=== PATIENT | male | born 1985 | race Caucasian/White ===

== ENCOUNTER 2020-10-30 16:53 | Outpatient (REF) | payer BC, SELFPAY | END 2020-10-30 16:54 | disposition home or self-care (01) | LOC: HO.LAB 16:53 | PROVIDERS: Visit Provider Internal Medicine | DX: Z20.822 Contact with and (suspected) exposure to COVID-19 (principal) | CPT/HCPCS: 36415; C9803; U0003 ==

== ENCOUNTER → 2022-11-07 14:57 | Outpatient (BNVA) | payer BC, SELFPAY | PROVIDERS: PCP Internal Medicine; Visit Provider Internal Medicine Endocrinology, Diabetes & Metabolism | DX: E11.65 Type 2 diabetes mellitus with hyperglycemia (principal) | CPT/HCPCS: 82947; 83036 ==

== ENCOUNTER → 2023-02-05 15:25 | Outpatient (BNVA) | payer BC, SELFPAY | PROVIDERS: PCP Internal Medicine; Visit Provider Internal Medicine Endocrinology, Diabetes & Metabolism | DX: E11.65 Type 2 diabetes mellitus with hyperglycemia (principal) | CPT/HCPCS: 82947 ==

== ENCOUNTER → 2023-02-25 12:58 | Outpatient (BNVA) | payer BC, SELFPAY | PROVIDERS: PCP Internal Medicine; Visit Provider Dietitian, Registered | DX: E11.65 Type 2 diabetes mellitus with hyperglycemia (principal); Z71.3 Dietary counseling and surveillance | CPT/HCPCS: 97802 ==

== ENCOUNTER 2023-03-05 07:30 | Outpatient (REF) | payer BC, SELFPAY ==
[2023-03-05 09:51] LABS: Alanine Aminotransferase 21 U/L (0-40); Albumin Level 4.1 g/dL (3.5-5.0); Alkaline Phosphatase 70 U/L (39-117); Anion Gap 10 (12-20); Aspartate Amino Transferase 10 U/L (5-37); Bilirubin Total 0.4 mg/dL (0.0-1.0); Blood Urea Nitrogen 17 mg/dL (9-16); Calcium 9.7 mg/dL (8.4-10.2); Carbon Dioxide 31 mmol/L (22-29); Chloride 103 mmol/L (96-108); Estimated Glomerular Filt Rate > 60; Glucose Random 268 mg/dL (60-115); Potassium 4.6 mmol/L (3.3-5.1); Sodium 139 mmol/L (135-145); Total Protein 6.9 g/dL (6.5-8.0)
== END 2023-03-05 07:31 | disposition home or self-care (01) ==
LOC: HO.LAB 07:30
PROVIDERS: PCP Internal Medicine; Visit Provider Internal Medicine
DX: E11.65 Type 2 diabetes mellitus with hyperglycemia (principal)
CPT/HCPCS: 36415; 80053

== ENCOUNTER → 2023-03-21 07:54 | Outpatient (BNVA) | payer BC, SELFPAY | PROVIDERS: PCP Internal Medicine; Visit Provider Internal Medicine Endocrinology, Diabetes & Metabolism | DX: E11.65 Type 2 diabetes mellitus with hyperglycemia (principal) | CPT/HCPCS: 82947; 83036 ==

== ENCOUNTER 2023-05-12 14:29 | Outpatient (AMB) | payer BC, SELFPAY ==
--- NOTE | 2023-05-12 14:33 | A.OFFVIS_ITS ---
Intake VS Expanded 05/12/23 14:35 Height 5 ft 11 in Weight 281 lb 1.43 oz BMI 39.2 Intake Visit Reasons: T2DM Allergies No Known Allergies [No Known Allergies*] Allergy (Verified 03/21/23 08:03) HPI Nutrition Presentation Details Pt presents for MNT f/u for T2DM. Pt reports having increased appetite. Needs review on relationship of fat/carb and BG level Most Recent Diabetes Results: Creatinine 0.84 mg/dL (0.5-1.4) 03/05/23 Blood Urea Nitrogen 17 mg/dL (9-16) H 03/05/23 Sodium 139 mmol/L (135-145) 03/05/23 Potassium 4.6 mmol/L (3.3-5.1) 03/05/23 Chloride 103 mmol/L (96-108) 03/05/23 Carbon Dioxide 31 mmol/L (22-29) H 03/05/23 Calcium 9.7 mg/dL (8.4-10.2) 03/05/23 AST 10 U/L (5-37) 03/05/23 ALT 21 U/L (0-40) 03/05/23 Total Protein 6.9 g/dL (6.5-8.0) 03/05/23 Albumin 4.1 g/dL (3.5-5.0) 03/05/23 [facility] Medical History (Updated 11/07/22 @ 15:51 by Binu García MD) Uncontrolled type 2 diabetes mellitus with hyperglycemia Surgical History No history of previous surgery Family History Father Diabetic gangrene Mother Diabetes Brother Diabetes Sister Diabetes Social History Household Members: Family Household Members Other:: mom, and dad Patient Tobacco Use Status: Never used Tobacco Assessment & Plan Assessment & Plan (1) Uncontrolled type 2 diabetes mellitus with hyperglycemia: Code(s): E11.65 - Type 2 diabetes mellitus with hyperglycemia Plan Educate Pt on reduction, diabetic meal plan ? Used wt : 129 kg Est kcal as per MSJ: 3225 (40% carb, 30% fat/prot) Est fluid needs: 3225 ml/d (25 ml/kg bw) Rec fiber: increase to 8-10 g per day and gradually increase to 35 g as tolerated Rec Na: < 2000 mg /d Educate patient on: (R= Reviewed, V = verbalizes understanding N/R= Needs review N/A= not applicable) * Food sources of carbohydrates and serving adequate serving sizes : R * Difference between complex carbohydrates and simple carbohydrates, role of fiber: R * Differences between fats (MUFA/PUFA/saturated fats, trans fats) and food sources of various fats: R (basic info) * Food sources of sodium and salt and healthy modifications for heart health and kidney health: N/R * Vitamins and minerals: R * How to interpret food labels: N/R * Healthy Plate method concept: R * Physical activity: benefits and precaution: R Patient Instructions: - include omega 3 sources : tuna at least twice/week - Include fiber rich foods in your meal at lunch (beans/corn/lettuce/spinach ) and modify the portion of rice by reducing portion to 1/2 cup less -Continue working on reducing sugars (beverages/pastries/cookies and similar foods) Coding Level of Care Code Nutr Indiv Subseq (29352) Diagnoses Uncontrolled type 2 diabetes mellitus with hyperglycemia E11.65 Time Spent (min) 30
[2023-05-12 14:35] VITALS: BMI 39.2
== END 2023-05-12 15:11 | disposition home or self-care (01) ==
PROVIDERS: PCP Internal Medicine; Visit Provider Dietitian, Registered
DX: E11.65 Type 2 diabetes mellitus with hyperglycemia (principal)

== ENCOUNTER → 2023-05-12 14:29 | Outpatient (BNVA) | payer BC, SELFPAY | PROVIDERS: Visit Provider Dietitian, Registered | DX: E11.65 Type 2 diabetes mellitus with hyperglycemia (principal); Z71.3 Dietary counseling and surveillance | CPT/HCPCS: 97803 ==

== ENCOUNTER 2023-05-19 14:50 | Outpatient (AMB) | payer BC, SELFPAY ==
--- NOTE | 2023-05-19 15:52 | A.OFFVIS_ITS ---
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 Accompanied by: Self / Same As Patient Allergies No Known Allergies [No Known Allergies*] Allergy (Verified 03/21/23 08:03) [facility] Comprehensive Diabetes Asmnt General Diabetes type type 2 Age of onset 37 Most Recent Diabetes Results: Creatinine 0.84 mg/dL (0.5-1.4) 03/05/23 Blood Urea Nitrogen 17 mg/dL (9-16) H 03/05/23 Sodium 139 mmol/L (135-145) 03/05/23 Potassium 4.6 mmol/L (3.3-5.1) 03/05/23 Chloride 103 mmol/L (96-108) 03/05/23 Carbon Dioxide 31 mmol/L (22-29) H 03/05/23 Calcium 9.7 mg/dL (8.4-10.2) 03/05/23 AST 10 U/L (5-37) 03/05/23 ALT 21 U/L (0-40) 03/05/23 Total Protein 6.9 g/dL (6.5-8.0) 03/05/23 Albumin 4.1 g/dL (3.5-5.0) 03/05/23 COUNTS INCLUDE 234 BEDS AT THE [facility] Medical History (Updated 11/07/22 @ 15:51 by Binu García MD) Uncontrolled type 2 diabetes mellitus with hyperglycemia Surgical History No history of previous surgery Family History Father Diabetic gangrene Mother Diabetes Brother Diabetes Sister Diabetes Social History Household Members: Family Household Members Other:: mom, and dad Patient Tobacco Use Status: Never used Tobacco Assessment & Plan Assessment & Plan (1) Uncontrolled type 2 diabetes mellitus with hyperglycemia: Code(s): E11.65 - Type 2 diabetes mellitus with hyperglycemia Plan: Learning objectives: The patient was provided with verbal and written education on the following t opics as outlined below. The patient met all learning objectives and was able to verbalize understanding and provide teach back of education topics discussed . The patient was provided with the opportunity to ask questions and all questions were answered. Patient Assessment Assess patient education level/literacy/barriers Patient questions/concerns, patient diagnosed with diabetes winter 2021. Last A1c on 03/21/2023 10.4% Patient was on Mounjaro, but unable to afford co-pay. He is currently taking his mother's Trulicity 1.5 mg weekly Glipizide ER 10 mg daily Pioglitazone and metformin b.i.d. He is not taking Toujeo 30 units daily due to fear of hypoglycemia Discussed with patient action of medications, patient does have several episodes hypoglycemia in the last 90 days. Then average glucose of 119, patient asked if he could stop 1 those medication. Discussed holding glipizide 10 mg. Will send message to Dr. García What is Diabetes? Pathophysiology How the body produces and uses insulin Identify type of DM Risk factors Signs of Diabetes Brief overview of Diabetes Management Monitoring blood sugar Following a meal plan Regular exercise Maintaining a healthy weight Taking medication as needed Members of the care team (PCP, RN, MA, RD, CDE, parts technician) Blood glucose monitoring When/how often to test Target blood sugar ranges Patient using freestyle Umm 3 Patient above target 3% Patient below target 0% Patient at target 97% Average glucose for the past 7 days 119 mg/dL Patient has 1 episode of hypoglycemia in the past 7 days Patient concerned with glucose dropping overnight Introduction to Nutrition Importance of healthy diet in managing DM Diet is personalized to individual preference Review patient?s regular diet/food preferences Who prepares meals/does food shopping/ Dining out?/ Barriers? How diet effects glucose Eating 3 balanced meals a day with small, healthy snacks between meals Review food groups Carbohydrates: What is a carbohydrate/Which food/food groups are considered carbohydrates Effect of carbohydrates on blood glucose Portion sizes Reading food labels Basic carb counting (if applicable per nursing assessment) Plate method Meal planning Recommendations: Follow plate method, consistent carbs and read nutritional labels. Smart Goal: Keep meals within 45-60 g of carb Educational Materials: The patient was provided with the following written educational materials: Planning Healthy Meals Handout Patient Response to instructions: Comprehension of Instructions: Fair Readiness to make changes: Contemplation How confident they feel about making changes: Positive Patient Instructions: Include regular daily activity. ADA recommends 30 minutes of exercise 5 days a week. Weight loss talk to PCP or Children'S Lunchroom Supervisor before starting new plan. Test blood sugar as directed; Fasting and 2hpp largest meal. Watch trends in results. Utilize results and to assess how food, physical activity and medications affect blood sugar results. Bring glucometer or CGM to next visit. Be knowledgeable about diabetes medication, its action, side effects, efficacy, toxicity, prescribed dosage, appropriate timing and frequency of administration, effect of missed and delayed doses and instructions for storage, travel and safety. Problem solving techniques to monitor hypo/hyperglycemia episodes and treatments. Reduce risk reduction behaviors, smoking cessation, regular eye, foot and dental examinations. Follow-up with chemical educator in 2 months Coding Level of Care Code Est Pt Level 1 (20539) Diagnoses Uncontrolled type 2 diabetes mellitus with hyperglycemia E11.65
== END 2023-05-19 15:57 | disposition home or self-care (01) ==
PROVIDERS: PCP Internal Medicine; Visit Provider Registered Nurse Diabetes Educator
DX: E11.65 Type 2 diabetes mellitus with hyperglycemia (principal)
CPT/HCPCS: 99211

== ENCOUNTER → 2023-05-19 14:50 | Outpatient (BNVA) | payer BC, SELFPAY | PROVIDERS: Visit Provider Registered Nurse Diabetes Educator ==

== ENCOUNTER 2023-06-19 15:24 | Outpatient (AMB) | payer BC, SELFPAY ==
[2023-06-19 15:26] VITALS: BP 132/68; PULSE 83; BMI 38.6
--- NOTE | 2023-06-19 15:26 | A.OFFVIS_ITS ---
Intake Vital Signs 06/19/23 15:26 Height 5 ft 11 in Weight 276 lb 7.355 oz BMI 38.6 BP 132/68 Blood Pressure Location Lt brachial Position Sitting Pulse 83 Pulse Source Pulse Oximeter Intake Visit Reasons: F/Up Type 2 DM Intake Note: Patient receives DME supplies through: Last Diabetic Eye exam: Haven't had one in years Last Podiatry Visit:None Random Glucose: 95 mg/dl HgA1C: 7.0% Internet Security Specialist Required: No Accompanied by: Self / Same As Patient Allergies No Known Allergies [No Known Allergies*] Allergy (Verified 06/19/23 15:30) Medication List - Last Reconciled 06/19/23 by Binu García MD albuterol sulfate 90 mcg/actuation inhalation blood sugar diagnostic (FreeStyle Lite Strips) As directed twice a day blood-glucose meter (FreeStyle Lite Meter kit) As directed blood-glucose sensor (FreeStyle Umm 3 Sensor device) As directed- change every 14 days dulaglutide (Trulicity) 1.5 mg subcut QWEEK insulin glargine U-300 conc (Toujeo Max U-300 SoloStar) 30 units (0.1 mL) subcut BEDTIME lancets (FreeStyle Lancets) As directed metformin 850 mg PO BID pen needle, diabetic (BD Rhina 2nd Gen Pen Needle) As directed injects once a day pioglitazone-metformin 15-850 mg 1 tab PO BID HPI HPI Comments History of Present Illness Details 37 YO M who is seen in consultation for T2DM at the request of PCP. Initially diagnosed with T2DM in 3 yrs . Never saw endo before Was initially started on treatment with metformin and glipizide . Current regimen Toujeo 30 units not taking Actos-Metformin 15-850 Mg BID . Trulicity 1.5 mg Qwkly Umm download shows he is using the sensor 50% of the time. Average glucose is 162 with G mi a of 7.2% and variability 22.5%. 73% range with to 27% hyperglycemia and no hypoglycemia No Reports low sugars . Family history of T2DM in mother and father . , last eye exam , needs to make appt . Has appt in 06/2023 Denies neuropathy,Does not sees podiatry. Has appt Denies nephropathy, Not on JUNA/ARB. Not Has HLD, Not on statin. ]. Denies CAD. Not Had diabetes education. [facility] Medical History (Updated 11/07/22 @ 15:51 by Binu García MD) Uncontrolled type 2 diabetes mellitus with hyperglycemia Surgical History No history of previous surgery Family History Father Diabetic gangrene Mother Diabetes Brother Diabetes Sister Diabetes Social History Household Members: Family Household Members Other:: mom, and dad Patient Tobacco Use Status: Never used Tobacco Physical Exam Vital Signs: Last Vital Signs Pulse 83 06/19/23 15:26 BP 132/68 06/19/23 15:26 BMI result Body Mass Index 38.6 Absence of Cushingoid features. Absence of acromegalic features. Neck exam reveals nl size thyroid about 15 gms. No thyroid nodules palpable. No carotid bruits present. Lungs CTA. Heart S1 S2, Reg R/R. No M/R/ G. Skin exam reveals absence of vitiligo or acanthosis nigricans. Abdominal exam reveals Soft NT/ND with NA BS. No organomegaly present. Neck Other: . Extrem Other: Visual exam of foot performed. No ulcerations or open lesions. No onchomycosis, no callouses.Pulses 2 + distally Sensation intact to monofilament exam. Vibratory sensation sensed is intact with 128 Hz tuning fork Results AMB Hemoglobin A1c AMB Hemoglobin A1c 7.0 % Last Edit by Karo Bhakta on 06/19/23 16:08 Results Reviewed Results Reviewed: 06/19/23 15:37 Glucose, Whole Blood Routine Laboratory Last Values Glucose (Clinic) 95 mg/dL (60-115) 06/19/23 15:37 Hgb A1c (Clinic) 7.0 % (4.0-6.0) H 06/19/23 15:57 Assessment & Plan Assessment & Plan (1) Uncontrolled type 2 diabetes mellitus with hyperglycemia: Code(s): E11.65 - Type 2 diabetes mellitus with hyperglycemia Plan: This is a 37-year-old male with a history of type 2 diabetes being treated with metformin, Actos and trulicity with excellent improved glycemic control and no known macrovascular or macrovascular complications. Plan is to continue the current management. At this point, patient returned to the care of his primary care provider. If his HbA1c rises, either Trulicity can be raised to 3 mg q.week or an SGLT 2 inhibitor like Jardiance can be initiated or the patient returned back to endocrine Orders: Orders AMB Hemoglobin A1c 06/19/23 E11.65 - Type 2 diabetes mellitus with hyperglycemia Coding Level of Care Code Est Pt Level 4 (88077) Diagnoses Uncontrolled type 2 diabetes mellitus with hyperglycemia E11.65
[2023-06-19 15:41] LABS: Glucose, Whole Blood 95 mg/dL (60-115)
== END 2023-06-19 16:01 | disposition home or self-care (01) ==
PROVIDERS: PCP Internal Medicine; Visit Provider Internal Medicine Endocrinology, Diabetes & Metabolism
DX: E11.65 Type 2 diabetes mellitus with hyperglycemia (principal)
CPT/HCPCS: 99214

== ENCOUNTER → 2023-06-19 15:24 | Outpatient (BNVA) | payer BC, SELFPAY | PROVIDERS: Visit Provider Internal Medicine Endocrinology, Diabetes & Metabolism | DX: E11.65 Type 2 diabetes mellitus with hyperglycemia (principal); Z79.4 Long term (current) use of insulin | CPT/HCPCS: 82947; 83036 ==